=== PATIENT | male | born 1990 | race Caucasian/White ===

== ENCOUNTER 2017-10-02 16:26 | Emergency (ER) | payer OTHER ==
[~2017-10-02] VITALS: Ht 172.7 cm; Wt 79.7 kg
[2017-10-02 16:37] VITALS: TEMP 37.2; Ht 172.7 cm; Wt 79.7 kg
--- NOTE | 2017-10-02 17:21 | EMERGENCY ROOM VISIT NOTE ---
History First contact with patient: 16:43 Chief Complaint: LACERATION/CUT (SUT/DERMABOND) Stated Complaint: LACERATION TO LEFT CALF FROM CHAINSAW Nursing Triage Summary: patient with well-approximated laceration to lower left leg, sutures intact. Small amount of bloody, purulent drainage noted. History of Present Illness The patient is a 27 year old male who presents to the Emergency Room for evaluation of a left leg laceration. The patient sustained a chainsaw injury to his left calf last 09/26/17. This happened while working at the [facility]. The patient was subsequently transferred to [facility] and [facility] in [place]. The patient reports that his laceration was repaired at that facility, but did not actually see an orthopedic surgeon. It was suggested that the patient follow-up with orthopedics, however they suggested that he drive back to [place] for these appointments. The patient told them that the travel distance and time were too great, and elected to follow-up with his PCP today. The patient reports that he has had some persistent drainage from the superior most portion of the laceration. He is also experiencing occasional spasms of the calf, usually of a nighttime when his leg is elevated. The patient was treated with Keflex 500 mg twice a day 5 days. He was administered Rocephin IM today and his family doctor's office, and referred to our emergency department for further evaluation. The patient denies any fevers or chills. He also denies any continuous paresthesias or numbness of the lower leg, foot or toes. And has been keeping the wound covered with Vaseline and gauze, and has also been remaining nonweightbearing with use of crutches. He rates his discomfort a 3 out of 10 which continues to improve daily. Tetanus immunization is up-to-date. Review of Systems 10 system review was performed and was negative except for pertinent positives and negatives as indicated in history of present illness Past Medical/Surgical History Medical Problems: (1) No significant past medical history Surgical Problems: (1) History of arthroscopy of both shoulders Family History FH: cancer FH: diabetes mellitus FH: heart disease FH: hypertension Social History Smoking Status: Never Smoker Smokeless Tobacco Use: Yes Alcohol Use: occasionally Marital Status: single, in relationship Housing Status: lives with family, lives with significant other Occupation Status: employed Physical Exam Vital Signs Date Time Temp Pulse Resp B/P (MAP) Pulse Ox O2 Delivery O2 Flow Rate FiO2 10/02/17 16:37 37.2 95 20 148/80 98 Room Air Physical Exam CONSTITUTIONAL: Healthy and well nourished. Alert and oriented X 3 with positive affect. Patient does not appear in any acute distress. HEENT: Normocephalic, atraumatic. Pupils equal, round and reactive. NECK: Full active range of motion without discomfort. MUSCULOSKELETAL: Examination shows a well-healing large laceration of the posteromedial calf region. The patient has a mild proteinaceous discharge from the most superior aspect of the laceration. There is no peripheral erythema, induration or increased warmth to palpation. The calf and posterior structures are soft and mostly nontender to palpation. Patient is able to plantarflex against resistance. No tenderness to palpation of the hamstrings. Pedal pulses are intact. INTEGUMENTARY: No rash or other significant dermatologic conditions noted. NEUROLOGIC: No focal neurologic deficits noted. Right foot and toes are sensory intact. Medical Decision & Procedures ED Course Patient history and physical exam were performed. Nurse's notes were reviewed. Vital signs were reviewed and were normal. The patient was advised that the wound appears to be healing well. I did explain that the drainage is normal for this type of injury, and not an indication of an infection. The patient was encouraged to alternate ice and heat as needed for pain. He was also instructed to remain nonweightbearing, using crutches. The patient reports that he has had a prior Worker's Compensation injury, and followed up with [facility]. He was instructed to call their office for an appointment for further reevaluation and management. He is welcome to return to the emergency department as needed for any signs of infection which were well briefed with the patient and girlfriend. The patient reports again that he has intermittent spasms of the calf. I explained that a muscle relaxer this point probably would not be very beneficial. I did suggest that he take Benadryl as needed to help him sleep. The patient was happy with plan of care, voiced understanding of all discharge instructions, and denied any significant pain at the conclusion of my exam. Medical Decision Medication Reconcilliation Current Medication List: was personally reviewed by me Blood Pressure Screening Patient's blood pressure: Normal blood pressure Impression Primary Impression: Laceration of left lower leg Additional Impression: Work related injury Departure Information Dispostion Home / Self-Care Referrals Eleno Shipley M.D. Forms HOME CARE DOCUMENTATION FORM, IMPORTANT VISIT INFORMATION Patient Instructions [facility] [employer] Additional Instructions Continue to use crutches, avoiding any weight on the left leg until reevaluated by orthopedics. You may take Benadryl 25-50 mg as needed for sleep. Alternate ice and heat to leg. Ibuprofen 800 mg and/or Tylenol 1000 mg every 8 hours. You may also alternate these medications for more effective pain relief: Ibuprofen --4 HRS--> Tylenol --4 HRS--> ibuprofen --4 HRS--> Tylenol .... Follow-up with [facility] (Dr. Shipley) for further reevaluation and management - call the office for an appointment. Problem Qualifiers Primary Impression: Laceration of left lower leg Encounter type: subsequent encounter Qualified Codes: S81.812D - Laceration without foreign body, left lower leg, subsequent encounter
[2017-10-02] MEDS ORDERED: CEPH500C PO (17:22)
[2017-10-02 17:28] VITALS: BP 133/81; PULSE 78; O2SAT 98
== END 2017-10-02 17:29 | disposition home or self-care (01) ==
LOC: C.EDB 16:28
DX: S81.812D Laceration without foreign body, left lower leg, subsequent encounter (principal); W29.3XXD Contact with powered garden and outdoor hand tools and machinery, subsequent encounter; Y99.0 Civilian activity done for income or pay; Y92.89 Other specified places as the place of occurrence of the external cause; Z80.9 Family history of malignant neoplasm, unspecified; Z83.3 Family history of diabetes mellitus; Z82.49 Family history of ischemic heart disease and other diseases of the circulatory system